=== PATIENT | female | born 1980 ===

== ENCOUNTER 2017-03-12 11:39 | Emergency (ER) | payer SELFPAY ==
[2017-03-12 11:39] VITALS: BMI 28.5
[2017-03-12 11:55] VITALS: RESP 18; TEMP 98.1; O2SAT 99
[2017-03-12] MEDS ORDERED: Sodium Chloride 0.9% 1,000 ML IV ONE (12:33)
[2017-03-12 12:44] LABS: RBC URINE 1 /hpf (0-3); URINE BACTERIA RARE (<OCC); URINE BILIRUBIN NEGATIVE (NEGATIVE); URINE BLOOD NEGATIVE (NEGATIVE); URINE COLOR Straw (YELLOW); URINE GLUCOSE (UA) NORMAL (Normal); URINE KETONE NEGATIVE (NEGATIVE); URINE LEUKOCYTE ESTERASE 2+ Leu/uL (Negative); URINE PROTEIN NEGATIVE (NEGATIVE); URINE UROBILINOGEN NORMAL mg/dL (0.2-1.0); WBC URINE 5 /hpf (0-5)
[2017-03-12] MEDS ORDERED: Sodium Chloride 0.9% 1,000 ML ONE (13:18)
[2017-03-12 13:36] LABS: BASO % 0.1 % (0.0-2.0); EOS % 0.3 % (0.0-4.0); HEMATOCRIT 41.2 % (34.0-47.0); LYMPH # 1.7 K/uL (1.0-4.3); LYMPH % 21.7 % (20.0-40.0); MEAN CORPUSCULAR HEMOGLOBIN 28.2 pg (27.0-31.0); MEAN CORPUSCULAR HGB CONC 34.7 g/dL (33.0-37.0); MEAN PLATELET VOLUME 9.2 fL (7.2-11.7); MONO # 0.4 K/uL (0.0-0.8); MONO % 4.6 % (0.0-10.0); NRBC % 0.1 % (0.0-2.0); RED CELL DISTRIBUTION WIDTH 13.1 % (11.5-14.5); WHITE BLOOD COUNT 7.8 K/uL (4.8-10.8)
[2017-03-12 13:37] LABS: MEAN CELL VOLUME 81.2 fL (81.0-99.0)
--- NOTE | 2017-03-12 14:03 | C.PDOC ---
History Of Present Illness 37 yr old female with PMHx of SLE, presents to the ER for evaluation of epigastric pain associated with GERD symptoms for the past 4 days. Patient describes as burning sensation from epigastric area up to throat , worse with supine position. Otherwise, pt denies fever, chills, headache, dizziness, throat swelling or tightness, neck pain, chest pain, SOB, cough, wheezing, palpitation, diaphoresis, vomiting, diarrhea, dysuria, back pain. Ambulate to ED for evaluation, not in any apparent distress. Time Seen by Provider: 03/12/17 11:58 Chief Complaint (Nursing): ENT Problem History Per: Patient History/Exam Limitations: no limitations Onset/Duration Of Symptoms: Days (4) Current Symptoms Are (Timing): Still Present Location Of Pain/Discomfort: Epigastric Radiation Of Pain To:: None Past Medical History Reviewed: Historical Data, Nursing Documentation, Vital Signs Vital Signs: Last Vital Signs Temp 98.1 F 03/12/17 11:49 Pulse 85 03/12/17 14:21 Resp 18 03/12/17 14:21 BP 131/82 03/12/17 14:21 Pulse Ox 99 03/12/17 14:22 - Medical History PMH: Anxiety, Gastritis, Hypercholesterolemia Denies: Chronic Kidney Disease Family History: States: No Known Family Hx - Social History Hx Tobacco Use: No Hx Alcohol Use: No Hx Substance Use: No - Immunization History Hx Tetanus Toxoid Vaccination: No Hx Influenza Vaccination: No Hx Pneumococcal Vaccination: No Review Of Systems Except As Marked, All Systems Reviewed And Found Negative. Constitutional: Negative for: Fever, Chills Cardiovascular: Negative for: Chest Pain Respiratory: Negative for: Shortness of Breath Gastrointestinal: Positive for: Nausea, Abdominal Pain (Epigastric ). Negative for: Vomiting, Diarrhea, Constipation Genitourinary: Negative for: Dysuria Musculoskeletal: Negative for: Back Pain Neurological: Negative for: Weakness, Numbness Physical Exam - Physical Exam Appears: Well, Non-toxic, No Acute Distress Skin: Warm, Dry, Rash Eye(s): bilateral: PERRL Nose: No Flaring Oral Mucosa: Moist Throat: No Erythema, No Exudate, No Drooling Neck: Supple Chest: No Tenderness Cardiovascular: Rhythm Regular, No Murmur, No JVD Respiratory: No Decreased Breath Sounds, No Accessory Muscle Use, No Rales, No Rhonchi, No Stridor, No Wheezing Gastrointestinal/Abdominal: Soft, Tenderness (Mild epigastric tenderness), No Guarding, No Rebound Back: No CVA Tenderness Extremity: Normal ROM, No Deformity, No Swelling Neurological/Psych: Oriented x3, Normal Speech ED Course And Treatment - Laboratory Results Result Diagrams: 03/12/17 13:24 03/12/17 13:24 Lab Interpretation: Normal ECG: Interpreted By Me, Viewed By Me ECG Rhythm: Sinus Rhythm ECG Interpretation: Abnormal Interpretation Of ECG: SR@85/min, NAD, RBBB, no acute ST-T changes. Compare to old EKG from 08/19/16 and appears without acute changes. Rate From EC (BPM) O2 Sat by Pulse Oximetry: 99 (RA) Pulse Ox Interpretation: Normal Progress Note: On re-eval, pt is afebrile, hemodynamicaly stable. Non-toxic. Tolerate Po well in ED. Pt reports, " feels better". PulseOx 99% RA. neck: Supple, (-) meningeal sign, (-) JVD, (-) carotid bruits. ENT: no acute findings. Lungs: CTA B/L, BS equal B/L. CVS: (+)S1S2, reg. Abd: benign, (-) guarding, (-) rebound. Neurologicaly intact. EKG review and appears without acute changes. Blood work review and appears without acute abnormalities. Pt has clinical findings c/w epigastric pain r/o GERD. Pt advised. ref. to F/u with PMD, GI in 1-2 days for re-eval. return if any new changes. Medical Decision Making Medical Decision Making: PLAN: * EKG * CBC * CMP * HCG * Urinalysis * Pepcid IVP * Zofran IVP * Sodium Chloride IV Disposition Counseled Patient/Family Regarding: Studies Performed, Diagnosis, Need For Followup, Rx Given - Disposition Referrals: Ainsley Roberson MD [Staff Provider] - Leon Billings MD [Staff Provider] - Disposition: HOME/ ROUTINE Disposition Time: 14:13 Condition: STABLE Additional Instructions: Avoid spicy food, encourage fluids Take medication as prescribed Follow up with GI in 2-3 days for re-evaluation. Return to ED if any worsening or new changes. Prescriptions: Pantoprazole Sodium [Protonix] 40 mg PO DAILY #30 tablet.dr Sucralfate [Carafate] 1 gm PO TID #30 tablet Instructions: Epigastric Pain (ED), Gastroesophageal Reflux Disease (ED) Forms: [employer] (Finnish) Print Language: GUAMANIAN - Clinical Impression Clinical Impression: Epigastric abdominal pain, GERD (gastroesophageal reflux disease) - PA / PAPER COLORER / Resident Statement MD/DO has reviewed & agrees with the documentation as recorded. - Scribe Statement The provider has reviewed the documentation as recorded by the Scribe Alka Hughes All medical record entries made by the Joesphibrosy were at my direction and personally dictated by me. I have reviewed the chart and agree that the record accurately reflects my personal performance of the history, physical exam, medical decision making, and the department course for this patient. I have also personally directed, reviewed, and agree with the discharge instructions and disposition.
[2017-03-12 14:08] LABS: CHLORIDE 103 mmol/L (98-107); POTASSIUM 4.2 mmol/L (3.6-5.2); SODIUM 142 mmol/L (132-148)
[2017-03-12 14:10] LABS: BILIRUBIN,TOTAL 0.4 mg/dL (0.2-1.3); GFR AFRICAN-AMERICAN > 60
[2017-03-12 14:11] LABS: ALKALINE PHOSPHATASE 52 U/L (38-126); ALT/SGPT 29 U/L (9-52); AST/SGOT 22 U/L (14-36); BLOOD UREA NITROGEN 7 mg/dL (7-17); CALCIUM 9.6 mg/dl (8.6-10.4); CARBON DIOXIDE 24 mmol/L (22-30); GLUCOSE,RANDOM 88 mg/dL (65-105)
[2017-03-12 14:19] LABS: TOTAL PROTEIN 7.9 g/dL (6.3-8.3)
[2017-03-12 14:22] VITALS: BP 131/82; PULSE 85
--- NOTE | 2017-03-13 14:20 | CARD ---
APPROVED REPORT EKG Measurement Heart [id number] <Conclusion> Normal sinus rhythm Right bundle branch block Abnormal ECG
== END 2017-03-12 14:50 | disposition home or self-care (01) ==
LOC: C.ER 11:39
DX: K21.9 Gastro-esophageal reflux disease without esophagitis (principal); R10.13 Epigastric pain; M32.9 Systemic lupus erythematosus, unspecified
CPT/HCPCS: 80053; 81001; 83690; 84703; 85025; 93005; 96361; 96374; 96375; 99283; C9113; J2405; J7040

== ENCOUNTER 2017-05-31 21:22 | Emergency (ER) | payer SELFPAY ==
[2017-05-31 21:22] VITALS: BMI 28.5
[2017-05-31 22:07] VITALS: RESP 20
[2017-05-31] MEDS ORDERED: Albuterol 0.083% Inhal Sol (2.5 mg/3 mL) UD IH STA (22:27)
[2017-05-31] MEDS ORDERED: Promethazine/Cod 6.25mg-10mg/5ml Syr UD PO STA (22:27)
[2017-05-31] MEDS ORDERED: Albuterol 0.083% Inhal Sol (2.5 mg/3 mL) UD ONE (22:45)
[2017-05-31] MEDS ORDERED: Promethazine/Cod 6.25mg-10mg/5ml Syr UD ONE (22:47)
--- NOTE | 2017-05-31 23:03 | C.PDOC ---
History Of Present Illness 37 year old female with no PMHx presents to the ER for an evaluation of cold symptoms, runny nose, and dry cough for the past 3 days. Patient states she developed some chest tightness and wheezing earlier today with her cough. Denies fever, chills, drooling, abdominal pain, chest pain, nausea, or vomiting. Time Seen by Provider: 05/31/17 22:14 Chief Complaint (Nursing): Cough, Cold, Congestion History Per: Patient History/Exam Limitations: no limitations Onset/Duration Of Symptoms: Days Current Symptoms Are (Timing): Still Present Location Of Pain: None Sick Contacts (Context): None Associated Symptoms: Cough, Sinus Drainage. denies: Fever, Chills, Sputum, Nausea, Vomiting Ear Symptoms: Bilateral: None Recent travel outside of the [place]: No Past Medical History Reviewed: Historical Data, Nursing Documentation, Vital Signs Vital Signs: Last Vital Signs Temp 98 F 05/31/17 22:05 Pulse 76 05/31/17 22:05 Resp 20 05/31/17 22:05 BP 126/81 05/31/17 22:05 Pulse Ox 98 05/31/17 23:11 - Medical History PMH: Anxiety, Gastritis, Hypercholesterolemia Family History: States: No Known Family Hx - Social History Hx Tobacco Use: No Hx Alcohol Use: No Hx Substance Use: No - Immunization History Hx Tetanus Toxoid Vaccination: No Hx Influenza Vaccination: No Hx Pneumococcal Vaccination: No Review Of Systems Constitutional: Negative for: Fever, Chills ENT: Positive for: Nose Discharge Cardiovascular: Negative for: Chest Pain Respiratory: Positive for: Cough, Wheezing, Other (Chest tightness). Negative for: Sputum Gastrointestinal: Negative for: Nausea, Vomiting, Abdominal Pain Genitourinary: Negative for: Dysuria, Hematuria Physical Exam - Physical Exam Appears: Non-toxic, No Acute Distress Skin: Normal Color, Warm, Dry, No Rash Head: Normacephalic Eye(s): bilateral: PERRL Ear(s): Bilateral: Normal Nose: No Flaring, Discharge (B/L nasal congestion with clear rhinorrhea) Oral Mucosa: Moist, No Drooling Tongue: Normal Appearing Lips: Normal Appearing Throat: No Erythema, No Drooling Neck: Normal, Trachea Midline, Supple, Other ((-) meningeal sign) Chest: Symmetrical, No Tenderness Cardiovascular: Rhythm Regular Respiratory: No Decreased Breath Sounds, No Accessory Muscle Use, No Rales, No Rhonchi, No Stridor, Wheezing (Right basilar, scattered expiratory) Gastrointestinal/Abdominal: Soft, No Tenderness, No Distention, No Guarding Extremity: Normal ROM, No Pedal Edema, No Swelling Neurological/Psych: Oriented x3, Normal Speech ED Course And Treatment O2 Sat by Pulse Oximetry: 98 (Room air) Pulse Ox Interpretation: Normal - Radiology CXR: Interpreted by Me, Viewed By Me CXR Interpretation: Yes: No Acute Disease Progress Note: CXR ordered. Albuterol nebulizer, prednisone, and promethazine/ codiene administered. On re-eval, pt is afebrile, hemodynamicaly stable. non- toxic. PulsEOx 98% RA. Neck: Supple, (-) meningeal sign. ENT: no acute findings. Lungs: CTA B/L, BS euqal B/L. Abd: benign. back: (-) CVA tenderness. CXR (-) acute findings. Pt has clinical findings c/w asthma bronchitis. Pt advised, ref. to F/u with PMD in 2-3 days for re-eval. return if any new changes. Disposition Counseled Patient/Family Regarding: Studies Performed, Diagnosis, Need For Followup, Rx Given - Disposition Referrals: [facility] [Outside] Disposition: HOME/ ROUTINE Disposition Time: 23:02 Condition: STABLE Additional Instructions: ENCOURAGE FLUIDS TAKE MEDICATION PRESCRIBED FOLLOW UP WITH PMD IN 2-3 DAYS FOR RE-EVALUATION. RETURN TO ED IF ANY WORSENING OR NEW CHANGES. Prescriptions: Azithromycin [Zithromax] 250 mg PO DAILY #4 tab Benzonatate [Tessalon Perle] 100 mg PO TID #14 capsule Prednisone [Deltasone] 20 mg PO DAILY #3 tablet Instructions: Acute Bronchitis (ED) Forms: [employer] (Uruguayan) Print Language: PORTUGUESE - Clinical Impression Clinical Impression: Bronchitis - PA / CONTINUOUS PROCESS TANNER ROTARY DRUM / Resident Statement MD/DO has reviewed & agrees with the documentation as recorded. - Scribe Statement The provider has reviewed the documentation as recorded by the Scribe Dony Collado All medical record entries made by the Scribe were at my direction and personally dictated by me. I have reviewed the chart and agree that the record accurately reflects my personal performance of the history, physical exam, medical decision making, and the department course for this patient. I have also personally directed, reviewed, and agree with the discharge instructions and disposition.
[2017-05-31 23:37] VITALS: BP 120/81; PULSE 90; TEMP 97.5; O2SAT 100
--- NOTE | 2017-06-01 08:42 | RAD ---
Chest x-ray two views History: Cough. Comparison: None available. Findings: No focal infiltrate or effusion. Heart size within normal limits. Impression: No focal infiltrate or effusion.
== END 2017-05-31 23:36 | disposition home or self-care (01) ==
LOC: C.ER 21:22
DX: J45.909 Unspecified asthma, uncomplicated (principal)

== ENCOUNTER 2017-06-06 22:25 | Emergency (ER) | payer OTHER ==
[2017-06-06 22:25] VITALS: BMI 28.5
[2017-06-06] MEDS ORDERED: Lactated Ringer's 1,000 ML IVB STA (22:45)
[2017-06-06] MEDS ORDERED: DiphenhydrAMINE 50 mg/ml Inj IVP STA (22:45)
[2017-06-06 22:56] LABS: URINE BILIRUBIN NEGATIVE (NEGATIVE); URINE BLOOD NEGATIVE (NEGATIVE); URINE COLOR Colorless (YELLOW); URINE GLUCOSE (UA) NORMAL (Normal); URINE KETONE NEGATIVE (NEGATIVE); URINE LEUKOCYTE ESTERASE NEG Leu/uL (Negative); URINE PROTEIN NEGATIVE (NEGATIVE); URINE UROBILINOGEN NORMAL mg/dL (0.2-1.0); WBC URINE 1 /hpf (0-5)
[2017-06-06] MEDS ORDERED: Lactated Ringer's 1,000 ML ONE (22:59)
[2017-06-06] MEDS ORDERED: DiphenhydrAMINE 50 mg/ml Inj ONE (23:00)
[2017-06-06 23:03] LABS: EOS # 0.2 K/uL (0.0-0.7); NRBC % 0.1 % (0.0-2.0); RED CELL DISTRIBUTION WIDTH 12.9 % (11.5-14.5)
[2017-06-06 23:10] LABS: BASO % 0.4 % (0.0-2.0); EOS % 1.8 % (0.0-4.0); HEMATOCRIT 42.9 % (34.0-47.0); LYMPH # 3.6 K/uL (1.0-4.3); LYMPH % 30.5 % (20.0-40.0); MEAN CELL VOLUME 80.2 fL (81.0-99.0); MEAN CORPUSCULAR HEMOGLOBIN 28.9 pg (27.0-31.0); MONO # 0.6 K/uL (0.0-0.8); MONO % 5.1 % (0.0-10.0); WHITE BLOOD COUNT 11.6 K/uL (4.8-10.8)
[2017-06-06 23:15] LABS: ALB/GLOB RATIO 1.2 (1.0-2.1); ALKALINE PHOSPHATASE 91 U/L (38-126); ALT/SGPT 25 U/L (9-52); AST/SGOT 28 U/L (14-36); BILIRUBIN,TOTAL 0.6 mg/dL (0.2-1.3); BLOOD UREA NITROGEN 13 mg/dL (7-17); CALCIUM 8.8 mg/dl (8.6-10.4); CARBON DIOXIDE 22 mmol/L (22-30); CHLORIDE 101 mmol/L (98-107); GFR AFRICAN-AMERICAN > 60; GLUCOSE,RANDOM 109 mg/dL (65-105); MAGNESIUM 1.9 mg/dL (1.6-2.3); POTASSIUM 3.9 mmol/L (3.6-5.2); SODIUM 132 mmol/L (132-148); TOTAL PROTEIN 7.6 g/dL (6.3-8.3)
[2017-06-06 23:21] VITALS: BP 130/90; PULSE 112; RESP 20; TEMP 98; O2SAT 96
--- NOTE | 2017-06-06 23:24 | C.PDOC ---
Time Seen by Provider: 06/06/17 22:33 Chief Complaint (Nursing): Cough, Cold, Congestion History Per: Patient Onset/Duration Of Symptoms: Days (about 1 week) Current Symptoms Are (Timing): Still Present Location Of Pain: Headache Associated Symptoms: Cough, Nasal Congestion Severity: Moderate Additional History Per: Prior Records Past Medical History Reviewed: Historical Data, Nursing Documentation, Vital Signs Vital Signs: Last Vital Signs Temp 98 F 06/06/17 23:20 Pulse 112 H 06/06/17 23:20 Resp 20 06/06/17 23:20 BP 130/90 06/06/17 23:20 Pulse Ox 96 06/06/17 23:31 - Medical History PMH: Anxiety, Gastritis, Hypercholesterolemia Other PMH: Lupus Surgical History: No Surg Hx Family History: States: Unknown Family Hx - Social History Hx Tobacco Use: No Hx Alcohol Use: No Hx Substance Use: No - Immunization History Hx Tetanus Toxoid Vaccination: No Hx Influenza Vaccination: No Hx Pneumococcal Vaccination: No Review Of Systems Except As Marked, All Systems Reviewed And Found Negative. Constitutional: Negative for: Weakness Cardiovascular: Negative for: Chest Pain Respiratory: Positive for: Cough. Negative for: Shortness of Breath Gastrointestinal: Positive for: Abdominal Pain (epigastric). Negative for: Vomiting, Diarrhea, Melena, Hematochezia, Hematemesis Genitourinary: Negative for: Dysuria Musculoskeletal: Positive for: Back Pain Neurological: Positive for: Headache. Negative for: Weakness, Numbness, Incoordination, Change in Speech, Confusion, Seizures, Altered Mental Status Psych: Positive for: Anxiety Physical Exam - Physical Exam Appears: Non-toxic, No Acute Distress Skin: Normal Color, Warm, Dry Head: Atraumatic, Normacephalic Eye(s): bilateral: PERRL, EOMI Neck: Normal ROM, Supple Cardiovascular: Rhythm Regular Respiratory: Normal Breath Sounds, No Accessory Muscle Use Gastrointestinal/Abdominal: Soft, Tenderness (mild epigastric), No Guarding, No Rebound Extremity: Normal ROM, No Pedal Edema, No Calf Tenderness Neurological/Psych: Oriented x3, Normal Motor, Normal Sensation ED Course And Treatment - Laboratory Results Result Diagrams: 06/06/17 22:55 06/06/17 22:55 Lab Interpretation: No Acute Changes Urine POC: Negative O2 Sat by Pulse Oximetry: 96 Pulse Ox Interpretation: Normal Progress Note: Headache and abdominal pain resolved after meds. Reassessment Condition: Improved Progress - Interventions Interventions:: Observation, Intravenous fluid - Medications Administered Intravenous: Antiemetic, Antihistamine (H-1), H-2 ellie - Data Reviewed Data Reviewed: Lab, Old records - Patient Status Patient status: Mostly improved - Continuity of Care Discussed patient case with:: Patient, Family-HIPPA compliant, ED Nurse - Patient Plan Patient Plan: Discharge, F/U with PCP, Continue present meds Disposition Counseled Patient/Family Regarding: Studies Performed, Diagnosis, Need For Followup, Rx Given - Disposition Referrals: [facility] [Outside] Disposition: HOME/ ROUTINE Disposition Time: 23:32 Condition: IMPROVED Additional Instructions: Follow up with your doctor or in the clinic for further evaluation and treatment. Return to the ER if you develop shortness of breath, vomiting, worsening of symptoms or if you have any other concerns. Prescriptions: hydrOXYzine HCl [Atarax] 50 mg PO TID PRN #30 tab PRN Reason: Anxiety Instructions: General Headache (ED), Gastritis (ED) Print Language: TELUGU - Clinical Impression Clinical Impression: Headache, Epigastric abdominal pain
== END 2017-06-06 23:45 | disposition home or self-care (01) ==
LOC: C.ER 22:25
DX: R51 Headache (principal); R10.13 Epigastric pain
CPT/HCPCS: 80053; 81001; 83690; 83735; 84703; 85025; 96374; 96375; 99285; J1200; J2765; J7120

== ENCOUNTER 2018-04-17 23:36 | Emergency (ER) | payer OTHER ==
[2018-04-17 23:36] VITALS: BMI 28.5
[2018-04-17 23:50] VITALS: TEMP 98.8
--- NOTE | 2018-04-17 23:57 | C.PDOC ---
History Of Present Illness 38 y/o female, with history of lupus, comes in complaining of diffuse body aches and chest wall pain. Patient is speaking in full sentences and denies any SOB, headache, dizziness, nausea, or vomiting. Time Seen by Provider: 04/17/18 23:56 Chief Complaint (Nursing): Chest Pain History Per: Patient History/Exam Limitations: no limitations Onset/Duration Of Symptoms: Days Current Symptoms Are (Timing): Still Present Severity: Moderate Pain Scale Rating Of: 4 Quality: Dull Associated Symptoms: denies: Nausea, Dyspnea Exacerbating Factors: None Alleviating Factors: None Recent travel outside of the [place]: No Additional History Per: Patient Past Medical History Reviewed: Historical Data, Nursing Documentation, Vital Signs Vital Signs: Last Vital Signs Temp 98.8 F 04/17/18 23:47 Pulse 93 H 04/17/18 23:47 Resp 20 04/17/18 23:47 BP 142/99 H 04/17/18 23:47 Pulse Ox 100 04/17/18 23:47 - Medical History PMH: Anxiety, Gastritis, Hypercholesterolemia Denies: Chronic Kidney Disease Family History: States: No Known Family Hx - Social History Hx Tobacco Use: No Hx Alcohol Use: No Hx Substance Use: No - Immunization History Hx Tetanus Toxoid Vaccination: No Hx Influenza Vaccination: No Hx Pneumococcal Vaccination: No Review Of Systems Constitutional: Negative for: Fever, Chills Cardiovascular: Positive for: Chest Pain. Negative for: Palpitations Respiratory: Negative for: Shortness of Breath Gastrointestinal: Negative for: Nausea, Vomiting Musculoskeletal: Positive for: Other (Body aches) Neurological: Negative for: Headache, Dizziness Physical Exam - Physical Exam Appears: Non-toxic, No Acute Distress Skin: Warm, Dry Head: Atraumatic, Normacephalic Eye(s): bilateral: Normal Inspection Oral Mucosa: Moist Neck: Supple Chest: Other (Diffuse chest wall pain that is reproduced on palpation) Cardiovascular: Rhythm Regular, No Murmur Respiratory: Normal Breath Sounds, No Rales, No Rhonchi, No Wheezing Gastrointestinal/Abdominal: Soft, No Tenderness Neurological/Psych: Oriented x3, Normal Speech Gait: Steady ED Course And Treatment - Laboratory Results Result Diagrams: 04/18/18 00:10 04/18/18 00:10 ECG: Interpreted By Me, Viewed By Me ECG Rhythm: Sinus Rhythm (88), R BBB, Nonspecific Changes O2 Sat by Pulse Oximetry: 100 (RA) Pulse Ox Interpretation: Normal - Radiology CXR: Interpreted by Me, Viewed By Me CXR Interpretation: No: Infiltrates, Fracture, Pnemothorax Progress Note: Labs and urinalysis ordered. Aspirin administered. Reevaluation Time: 03:08 Reassessment Condition: Improved Disposition Counseled Patient/Family Regarding: Studies Performed, Diagnosis, Need For Followup - Disposition Referrals: Kenneth Mclean MD [Staff Provider] - Disposition: HOME/ ROUTINE Disposition Time: 02:37 Condition: FAIR Prescriptions: Naproxen [Naprosyn] 1 tab PO BID PRN #25 tab PRN Reason: Pain Instructions: Costochondritis (DC) Forms: [employer] (Maltese) Print Language: SLOVENIAN - Clinical Impression Clinical Impression: Costochondral chest pain - Scribe Statement The provider has reviewed the documentation as recorded by the Donte Self Provider Attestation: All medical record entries made by the Joesphibrosy were at my direction and personally dictated by me. I have reviewed the chart and agree that the record accurately reflects my personal performance of the history, physical exam, medical decision making, and the department course for this patient. I have also personally directed, reviewed, and agree with the discharge instructions and disposition.
[2018-04-18 00:19] LABS: BASO % 0.3 % (0.0-2.0); EOS # 0.1 K/uL (0.0-0.7); EOS % 1.6 % (0.0-4.0); HEMOGLOBIN 14.8 g/dL (11.0-16.0); LYMPH # 2.7 K/uL (1.0-4.3); LYMPH % 30.9 % (20.0-40.0); MEAN CELL VOLUME 80.3 fL (81.0-99.0); MEAN CORPUSCULAR HEMOGLOBIN 28.3 pg (27.0-31.0); MEAN CORPUSCULAR HGB CONC 35.2 g/dL (33.0-37.0); MEAN PLATELET VOLUME 9.3 fL (7.2-11.7); MONO # 0.6 K/uL (0.0-0.8); MONO % 6.7 % (0.0-10.0); NEUT # 5.3 K/uL (1.8-7.0); NEUT % 60.5 % (50.0-75.0); NRBC % 0.1 % (0.0-2.0); RBC 5.24 Mil/uL (3.80-5.20); RED CELL DISTRIBUTION WIDTH 13.8 % (11.5-14.5); WHITE BLOOD COUNT 8.8 K/uL (4.8-10.8)
[2018-04-18 00:21] LABS: SQUAMOUS EPITHIAL 8 /hpf (0-5); URINE BILIRUBIN NEGATIVE (NEGATIVE); URINE BLOOD NEGATIVE (NEGATIVE); URINE CLARITY Clear (Clear); URINE COLOR Colorless (YELLOW); URINE GLUCOSE (UA) NORMAL (Normal); URINE LEUKOCYTE ESTERASE NEG Leu/uL (Negative); URINE PROTEIN NEGATIVE (NEGATIVE); URINE UROBILINOGEN NORMAL mg/dL (0.2-1.0)
[2018-04-18 00:22] LABS: HCG,QUALITATIVE URINE NEGATIVE (NEGATIVE)
[2018-04-18 00:24] LABS: PROTHROMBIN TIME 11.3 SECONDS (9.7-12.2)
[2018-04-18 00:32] LABS: ALB/GLOB RATIO 1.6 (1.0-2.1); ALBUMIN 4.5 g/dL (3.5-5.0); ALT/SGPT 22 U/L (9-52); AST/SGOT 19 U/L (14-36); BLOOD UREA NITROGEN 13 mg/dL (7-17); CALCIUM 9.3 mg/dl (8.6-10.4); GFR NON-AFRICAN AMERICAN > 60
[2018-04-18 01:07] LABS: LIPASE 129 U/L (23-300)
[2018-04-18 02:49] VITALS: BP 138/81; PULSE 93; RESP 22
[2018-04-18 03:09] VITALS: O2SAT 100
--- NOTE | 2018-04-18 09:08 | RAD ---
Date of service: 04/18/2018 HISTORY: cp COMPARISON: Chest radiographs 05/31/2017. FINDINGS: LUNGS: No active pulmonary disease. PLEURA: No significant pleural effusion identified, no pneumothorax apparent. CARDIOVASCULAR: No aortic atherosclerotic calcification present. Normal cardiac size. No pulmonary vascular congestion. OSSEOUS STRUCTURES: No significant abnormalities. VISUALIZED UPPER ABDOMEN: Normal. OTHER FINDINGS: None. IMPRESSION: No interval acute cardiopulmonary disease appreciated.
--- NOTE | 2018-04-20 15:30 | CARD ---
APPROVED REPORT Date of service: 04/17/2018 EKG Measurement Heart [id number] 160P41 [id number] <Conclusion> Normal sinus rhythm Right bundle branch block Abnormal ECG
== END 2018-04-18 03:32 | disposition home or self-care (01) ==
LOC: C.ER 23:36
DX: R07.89 Other chest pain (principal); E78.00 Pure hypercholesterolemia, unspecified; F41.9 Anxiety disorder, unspecified; M32.9 Systemic lupus erythematosus, unspecified
CPT/HCPCS: 71045; 80053; 81001; 83690; 84484; 84703; 85025; 85610; 85730; 93005; 94770; 96374; 99285; J1885

== ENCOUNTER 2018-06-22 08:55 | Outpatient (CLI) | payer OTHER | END 2018-06-22 08:56 | disposition home or self-care (01) | LOC: C.LAB 08:55 | DX: M32.10 Systemic lupus erythematosus, organ or system involvement unspecified (principal); N39.0 Urinary tract infection, site not specified ==

== ENCOUNTER 2018-07-19 20:48 | Emergency (ER) | payer OTHER ==
[2018-07-19 20:48] VITALS: BMI 28.5
[2018-07-19] MEDS ORDERED: Sodium Chloride 0.9% 1,000 ML IV ONE (22:39)
[2018-07-19 23:44] LABS: BASO % 0.2 % (0.0-2.0); EOS % 0.1 % (0.0-4.0); HEMOGLOBIN 15.2 g/dL (11.0-16.0); LYMPH # 2.2 K/uL (1.0-4.3); LYMPH % 16.9 % (20.0-40.0); MEAN CELL VOLUME 81.9 fL (81.0-99.0); MEAN CORPUSCULAR HEMOGLOBIN 28.1 pg (27.0-31.0); MEAN CORPUSCULAR HGB CONC 34.2 g/dL (33.0-37.0); MEAN PLATELET VOLUME 9.4 fL (7.2-11.7); MONO # 0.6 K/uL (0.0-0.8); NEUT # 10.1 K/uL (1.8-7.0); NEUT % 77.8 % (50.0-75.0); NRBC % 0.1 % (0.0-2.0); RBC 5.43 Mil/uL (3.80-5.20)
[2018-07-19 23:54] LABS: SQUAMOUS EPITHIAL 28 /hpf (0-5); URINE BACTERIA OCC (<OCC); URINE BILIRUBIN NEGATIVE (NEGATIVE); URINE BLOOD NEGATIVE (NEGATIVE); URINE CLARITY Hazy (Clear); URINE COLOR Yellow (YELLOW); URINE GLUCOSE (UA) NORMAL (Normal); URINE LEUKOCYTE ESTERASE 2+ Leu/uL (Negative); URINE PROTEIN NEGATIVE (NEGATIVE); URINE UROBILINOGEN NORMAL mg/dL (0.2-1.0)
[2018-07-19 23:59] LABS: ALB/GLOB RATIO 1.5 (1.0-2.1); ALBUMIN 4.6 g/dL (3.5-5.0); ALT/SGPT 17 U/L (9-52); AST/SGOT 25 U/L (14-36); BLOOD UREA NITROGEN 10 mg/dL (7-17); CALCIUM 9.5 mg/dl (8.6-10.4); GFR NON-AFRICAN AMERICAN > 60
[2018-07-20 00:10] LABS: B-TYPE NATRIURETIC PEPTIDE 30.8 pg/mL (0-450)
--- NOTE | 2018-07-20 00:20 | C.PDOC ---
History Of Present Illness 38 year old female presents to the ER with a complaint of back pain and SOB. Patient has a Hx of lupus. Reports sudden onset of symptoms earlier today. <Julio Tolentino - Last Filed: 07/20/18 00:29> History Per: Patient History/Exam Limitations: no limitations Onset/Duration Of Symptoms: Hrs Current Symptoms Are (Timing): Still Present Recent travel outside of the [place]: No <Julio Tolentino - Last Filed: 07/20/18 00:29> <Julio C Delong - Last Filed: 07/20/18 03:35> Time Seen by Provider: 07/19/18 22:34 Chief Complaint (Nursing): Dizziness/Lightheaded Past Medical History Reviewed: Historical Data, Nursing Documentation, Vital Signs Vital Signs: Last Vital Signs Temp 97.8 F 07/19/18 21:55 Pulse 88 07/19/18 21:55 Resp 20 07/19/18 21:55 BP 111/76 07/19/18 21:55 Pulse Ox 100 07/19/18 21:55 - Medical History PMH: Anxiety, Gastritis, Hypercholesterolemia Denies: Chronic Kidney Disease Family History: States: Unknown Family Hx - Social History Hx Tobacco Use: No Hx Alcohol Use: No Hx Substance Use: No - Immunization History Hx Tetanus Toxoid Vaccination: No Hx Influenza Vaccination: No Hx Pneumococcal Vaccination: No <Julio Tolentino - Last Filed: 07/20/18 00:29> Vital Signs: Last Vital Signs Temp 97.8 F 07/19/18 21:55 Pulse 88 07/19/18 21:55 Resp 20 07/19/18 21:55 BP 111/76 07/19/18 21:55 Pulse Ox 100 07/20/18 00:30 <Julio C Delong - Last Filed: 07/20/18 03:35> Review Of Systems Constitutional: Negative for: Fever, Chills Cardiovascular: Negative for: Chest Pain, Palpitations Respiratory: Positive for: Shortness of Breath. Negative for: Cough Gastrointestinal: Negative for: Nausea, Vomiting Musculoskeletal: Positive for: Back Pain Neurological: Negative for: Weakness, Numbness <Julio Tolentino Last Filed: 07/20/18 00:29> Physical Exam - Physical Exam Appears: Non-toxic, Other (Obese female) Skin: Normal Color, Warm, Dry Head: Atraumatic, Normacephalic Eye(s): bilateral: Normal Inspection Oral Mucosa: Moist Neck: Normal, Supple Chest: Symmetrical, No Tenderness Cardiovascular: Rhythm Regular Respiratory: Normal Breath Sounds, No Rales, No Rhonchi, No Wheezing, Other (Mild SOB) Gastrointestinal/Abdominal: Soft, No Tenderness Neurological/Psych: Oriented x3, Normal Speech <Julio Tolentino - Last Filed: 07/20/18 00:29> ED Course And Treatment - Laboratory Results Result Diagrams: 07/19/18 23:40 07/19/18 23:40 Lab Results: Troponin I < 0.0120 ng/mL (0.00-0.120) 07/19/18 23:40 NT-Pro-B Natriuret Pep 30.8 pg/mL (0-450) 07/19/18 23:40 Total Bilirubin 0.5 mg/dL (0.2-1.3) 07/19/18 23:40 AST 25 U/L (14-36) 07/19/18 23:40 ALT 17 U/L (9-52) 07/19/18 23:40 Alkaline Phosphatase 92 U/L (38-126) 07/19/18 23:40 Total Protein 7.6 g/dL (6.3-8.3) 07/19/18 23:40 Albumin 4.6 g/dL (3.5-5.0) 07/19/18 23:40 Globulin 3.0 gm/dL (2.2-3.9) 07/19/18 23:40 Albumin/Globulin Ratio 1.5 (1.0-2.1) 07/19/18 23:40 Urine Color Yellow (YELLOW) 07/19/18 23:40 Urine Clarity Hazy (Clear) 07/19/18 23:40 Urine pH 8.0 (5.0-8.0) 07/19/18 23:40 Ur Specific Temple 1.005 (1.003-1.030) 07/19/18 23:40 Urine Protein Negative mg/dL (NEGATIVE) 07/19/18 23:40 Urine Glucose (UA) Normal mg/dL (Normal) 07/19/18 23:40 Urine Ketones Trace mg/dL (NEGATIVE) 07/19/18 23:40 Urine Blood Negative (NEGATIVE) 07/19/18 23:40 Urine Nitrate Negative (NEGATIVE) 07/19/18 23:40 Urine Bilirubin Negative (NEGATIVE) 07/19/18 23:40 Urine Urobilinogen Normal mg/dL (0.2-1.0) 07/19/18 23:40 Ur Leukocyte Esterase 2+ Carolin/uL (Negative) H 07/19/18 23:40 Urine WBC (Auto) 34 /hpf (0-5) H 07/19/18 23:40 Urine RBC (Auto) 2 /hpf (0-3) 07/19/18 23:40 Ur Squamous Epith Cells 28 /hpf (0-5) H 07/19/18 23:40 Urine Bacteria Occ (<OCC) H 07/19/18 23:40 O2 Sat by Pulse Oximetry: 100 (Room air) Pulse Ox Interpretation: Normal <Julio Tolentino - Last Filed: 07/20/18 00:29> - Laboratory Results Result Diagrams: 07/19/18 23:40 07/19/18 23:40 Lab Results: PT 12.8 SECONDS (9.7-12.2) H 07/20/18 01:14 INR 1.2 07/20/18 01:14 APTT 30 SECONDS (21-34) 07/20/18 01:14 D-Dimer, Quantitative < 200 ng/mlDDU (0-243) 07/20/18 01:14 Troponin I < 0.0120 ng/mL (0.00-0.120) 07/19/18 23:40 NT-Pro-B Natriuret Pep 30.8 pg/mL (0-450) 07/19/18 23:40 Total Bilirubin 0.5 mg/dL (0.2-1.3) 07/19/18 23:40 AST 25 U/L (14-36) 07/19/18 23:40 ALT 17 U/L (9-52) 07/19/18 23:40 Alkaline Phosphatase 92 U/L (38-126) 07/19/18 23:40 Total Protein 7.6 g/dL (6.3-8.3) 07/19/18 23:40 Albumin 4.6 g/dL (3.5-5.0) 07/19/18 23:40 Globulin 3.0 gm/dL (2.2-3.9) 07/19/18 23:40 Albumin/Globulin Ratio 1.5 (1.0-2.1) 07/19/18 23:40 Urine Color Yellow (YELLOW) 07/19/18 23:40 Urine Clarity Hazy (Clear) 07/19/18 23:40 Urine pH 8.0 (5.0-8.0) 07/19/18 23:40 Ur Specific Temple 1.005 (1.003-1.030) 07/19/18 23:40 Urine Protein Negative mg/dL (NEGATIVE) 07/19/18 23:40 Urine Glucose (UA) Normal mg/dL (Normal) 07/19/18 23:40 Urine Ketones Trace mg/dL (NEGATIVE) 07/19/18 23:40 Urine Blood Negative (NEGATIVE) 07/19/18 23:40 Urine Nitrate Negative (NEGATIVE) 07/19/18 23:40 Urine Bilirubin Negative (NEGATIVE) 07/19/18 23:40 Urine Urobilinogen Normal mg/dL (0.2-1.0) 07/19/18 23:40 Ur Leukocyte Esterase 2+ Carolin/uL (Negative) H 07/19/18 23:40 Urine WBC (Auto) 34 /hpf (0-5) H 07/19/18 23:40 Urine RBC (Auto) 2 /hpf (0-3) 07/19/18 23:40 Ur Squamous Epith Cells 28 /hpf (0-5) H 07/19/18 23:40 Urine Bacteria Occ (<OCC) H 07/19/18 23:40 Pulse Ox Interpretation: Normal - Radiology CXR: Interpreted by Me, Viewed By Me CXR Interpretation: No: Infiltrates, Fracture, Pnemothorax Reevaluation Time: 03:32 Reassessment Condition: Improved <Julio C Delong - Last Filed: 07/20/18 03:35> Disposition <Julio Tolentino - Last Filed: 07/20/18 00:29> Counseled Patient/Family Regarding: Studies Performed, Diagnosis, Need For Followup, Rx Given - Disposition Disposition Time: 01:00 <Julio C Delong - Last Filed: 07/20/18 03:35> - Disposition Referrals: Kenneth Mclean MD [Staff Provider] - Disposition: HOME/ ROUTINE Condition: FAIR Additional Instructions: Please return if symptoms recur Prescriptions: Lorazepam [Ativan] 0.5 mg PO Q12H PRN #10 tab PRN Reason: Anxiety Nitrofurantoin Macrocrystals [Macrobid] 1 cap PO BID #14 cap Instructions: Anxiety, Adult (DC) Forms: [facility] (Wallisian) - Clinical Impression Clinical Impression: Anxiety, UTI (urinary tract infection) - Scribe Statement The provider has reviewed the documentation as recorded by the Scribe Dony Collado All medical record entries made by the Scribe were at my direction and personally dictated by me. I have reviewed the chart and agree that the record accurately reflects my personal performance of the history, physical exam, medical decision making, and the department course for this patient. I have also personally directed, reviewed, and agree with the discharge instructions and disposition. <Julio Tolentino E - Last Filed: 07/20/18 00:29> Physician Patient Turnover Patient Signed Over To: Julio C Delong Handoff Comments: f/u labs, consider PE study and/or CT Abd/pelvis to r/o Pyelonephritis <Julio Tolentino - Last Filed: 07/20/18 00:29>
[2018-07-20 01:37] LABS: INR 1.2; PARTIAL THROMBOPLASTIN TIME 30 SECONDS (21-34); PROTHROMBIN TIME 12.8 SECONDS (9.7-12.2)
[2018-07-20 01:41] LABS: D DIMER < 200 ng/mlDDU (0-243)
[2018-07-20 03:33] VITALS: BP 124/79; PULSE 74; RESP 17; TEMP 98.6; O2SAT 98
[2018-07-20] MEDS ORDERED: Potassium Chloride 20 mEq/15 ml LIQ UD PO STA (03:34)
[2018-07-20] MEDS ORDERED: Potassium Chloride 20 mEq ER Tab PO ONE (03:43)
--- NOTE | 2018-07-20 10:37 | RAD ---
HISTORY: SOB COMPARISON: Chest x-ray performed 04/18/18 TECHNIQUE: Chest, one view. FINDINGS: Examination limited by habitus. LUNGS: No focal consolidation. Please note that chest x-ray has limited sensitivity for the detection of pulmonary masses. PLEURA: No significant pleural effusion identified. No definite pneumothorax . CARDIOVASCULAR: Heart size appears within normal limits. No significant atherosclerotic calcification present. OSSEOUS STRUCTURES: No acute osseous abnormality identified. VISUALIZED UPPER ABDOMEN: Unremarkable. OTHER FINDINGS: None. IMPRESSION: No focal consolidation.
--- NOTE | 2018-07-21 14:25 | CARD ---
APPROVED REPORT Date of service: 07/19/2018 EKG Measurement Heart [id number] <Conclusion> Normal sinus rhythm Left axis deviation Right bundle branch block Abnormal ECG
== END 2018-07-20 03:47 | disposition home or self-care (01) ==
LOC: C.ER 20:48
DX: F41.9 Anxiety disorder, unspecified (principal); N39.0 Urinary tract infection, site not specified
CPT/HCPCS: 71045; 80053; 81001; 83880; 84484; 85025; 85378; 85610; 85730; 87804; 93005; 96374; 99285; J1885; J7030